=== PATIENT | male | born 1955 | race African-American/Black ===

== ENCOUNTER 2024-07-02 11:03 | Emergency (ER) | payer MEDICARE, MEDICAID ==
[~2024-07-02] VITALS: Ht 185.4 cm; Wt 82.0 kg
[~2024-07-02 11:03] MED LIST: PROT40 PO; TOPUD PO
[2024-07-02 11:21] VITALS: O2SAT 99
[2024-07-02 13:24] LABS: CHLORIDE 103 mEq/L (98-107); POTASSIUM 4.5 mEq/L (3.5-5.1); SODIUM 134 mEq/L (136-145)
[2024-07-02 13:25] LABS: CALCIUM 9.5 mg/dL (8.7-10.4); CARBON DIOXIDE 28 mEq/L (21-32)
[2024-07-02 13:26] LABS: INR 1.1; PROTHROMBIN TIME 11.7 sec (9.6-11.0)
[2024-07-02] MEDS: IBUPROFEN 600MG TABLET PO STA (13:29)
[2024-07-02 13:30] LABS: GLUCOSE 241 mg/dL (70-105)
[2024-07-02 13:31] LABS: TROPONIN I HIGH SENSITIVITY 4 ng/L (3.0-53)
[2024-07-02 13:32] LABS: BASOPHILS % 0.8 % (0.0-2.0); EOSINOPHILS % 0.6 % (0.0-5.0); HEMATOCRIT. 43.2 % (42.0-52.0); HEMOGLOBIN. 14.8 g/dL (14.0-18.0); LYMPHOCYTES % 34.7 % (20.0-50.0); MEAN CORPUSCULAR HEMOGLOBIN 30.1 pg (28.0-32.0); MEAN CORPUSCULAR HGB CONC 34.2 g/dL (31.0-37.0); MEAN PLATELET VOLUME 10.1 fl (7.4-10.4); MONOCYTES % 6.8 % (2.0-8.0); NEUTROPHILS % 57.1 % (40.0-76.0); PLATELET 187 x1000/uL (130-400); RED BLOOD CELL COUNT 4.91 mill/uL (4.7-6.1); RED CELL DISTRIBUTION WIDTH 12.4 % (11.6-14.6); WHITE BLOOD COUNT 6.4 x1000/uL (4.5-11.0)
[2024-07-02 13:35] LABS: UREA NITROGEN BLOOD < 5 mg/dL (9-23)
[2024-07-02 14:50] LABS: ALANINE AMINOTRANSFERASE 59 IU/L (10-49)
[2024-07-02 14:51] LABS: ALBUMIN 4.4 g/dL (3.2-4.8); ASPARTATE AMINOTRANSFERASE 45 IU/L (<34); BILIRUBIN DIRECT 0.2 mg/dL (<=3.0); BILIRUBIN TOTAL 0.7 mg/dL (0.1-1.0)
[2024-07-02] MEDS ORDERED: IOHEXOL-350 100 ML BOTTLE ONE (17:21)
[2024-07-02 18:05] VITALS: BP 118/70; PULSE 90; RESP 16; TEMP 36.89184; O2SAT 99
== END 2024-07-02 18:05 | disposition home or self-care (01) ==
LOC: ER 11:03
DX: R10.11 Right upper quadrant pain (principal); Z98.890 Other specified postprocedural states; Z88.0 Allergy status to penicillin; X58.XXXA Exposure to other specified factors, initial encounter; Y93.89 Activity, other specified; Y92.89 Other specified places as the place of occurrence of the external cause; Y99.8 Other external cause status
CPT/HCPCS: 99285; 74177; 71045; 80076; 80048; 83690; 85025; 85610; 84484; 36415; 93005; Q9967